=== PATIENT | male | born 1990 | race Caucasian/White ===

== ENCOUNTER 2017-02-01 15:56 | Emergency (ER) | payer OTHER ==
[~2017-02-01] VITALS: Ht 167.6 cm; Wt 74.8 kg
[2017-02-01] MEDS ORDERED: PROSCAR5 MG ORAL (16:04)
[2017-02-01] MEDS ORDERED: Lidocaine 2% 20mg/ml/Epi 0.005mg/ml 20ml vial ONE (16:12)
[2017-02-01] MEDS ORDERED: TdaP Vaccine 0.5ml Syr IM ONE (16:15)
[2017-02-01] MEDS ORDERED: Bacitracin Oint UD TOPIC ONE (16:15)
[2017-02-01] MEDS ORDERED: Lidocaine 1% 10mg/ml/Epi 0.005mg/ml 30ml vial INJ ONE (16:15)
[2017-02-01 16:17] VITALS: BP 99/63
--- NOTE | 2017-02-01 16:31 | Emergency Room Report ---
History of Present Illness General Chief Complaint: Laceration Source: Patient Present Illness HPI 26-year-old male presents emergency department complaining of laceration to the palm of the left hand since this afternoon. Patient states that he was at work and patient pain glass shattered in his hand and to was cut by broken glass. Patient does not believe that there is retained glass in the palm he states bleeding has for the most part subsided as at work they applied blood clotting powder. Patient states he is unsure whether he is up-to-date with tetanus. Patient denies taking blood thinning medications. Denies numbness tingling or loss of sensation or gross motor movements of the extremities, incontinence of bowel or bladder. Denies CP, Palpitations, LOC, AMS, dizziness, Changes in Vision, Sensation, paresthesias, or a sudden severe headache. Allergies: Coded Allergies: No Known Allergies (Unverified , 02/01/17) Patient History Past Medical History: see triage record Past Surgical History: none Pertinent Family History: none Reviewed Nursing Documentation: PMH: Agreed, PSxH: Agreed Nursing Documentation-PMH Past Medical History: No Stated History Review of Systems All Other Systems: negative except mentioned in HPI Physical Exam Vital Signs Date Time Temp Pulse Resp B/P Pulse Ox O2 Delivery O2 Flow Rate FiO2 02/01/17 15:59 97.9 67 16 99/63 99 Sp02 EP Interpretation: reviewed, normal General Appearance: no apparent distress, alert, GCS 15, non-toxic Head: normocephalic, atraumatic Eyes: bilateral eye PERRL, bilateral eye normal inspection ENT: hearing grossly normal, normal pharynx, no angioedema, normal voice Neck: full range of motion, supple/symm/no masses Respiratory: chest non-tender, lungs clear, normal breath sounds, speaking full sentences Cardiovascular #1: regular rate, rhythm, no edema, normal capillary refill Musculoskeletal: back normal, gait/station normal, normal range of motion, non- tender Neurologic: alert, oriented x3, responsive, motor strength/tone normal, sensory intact, speech normal Psychiatric: judgement/insight normal, memory normal, mood/affect normal Skin: normal color, no rash, warm/dry, well hydrated, laceration - left palm laceration approx. 1cm in length on the thenar aspect. no obvious fb. Procedures Laceration/Wound Repair Laceration/Wound Repair : Consent: Verbal Wound Location: upper extremity - left palm Wound's Depth, Shape: superficial Wound Length (cm): 1 Wound Explored: clean Irrigated w/ Saline (ccs): 200 Betadine Prep?: Yes Anesthesia: Lidocaine w/ Epi Volume Anesthetic (ccs): 2 Wound Repaired With: sutures Suture Size/Type: 5:0 Number of Sutures: 4 Layer Closure?: No Sterile Dressing Applied?: Yes Splint Applied?: Yes Type of Splint Applied: volar hand Sling Applied?: No Patient Tolerated: Well Complications: Other - unable to located radiopaque FB. Medical Decision Making PA Attestation Dr. Man is my supervising Physician whom patient management has been discussed with. Diagnostic Impression: Primary Impression: Laceration Additional Impression: Retained foreign body ER Course Pt. presents to the ED c/o laceration to left palm from shattered champagne glass. Ddx considered but are not limited to laceration, tendon injury, cellulitis, amputation, FB. Vital signs: are WNL, pt. is afebrile H&PE are most consistent with: laceration of the left palm approx 1 cm in length ORDERS: -X- Ray Left Hand 3 views: Positive for obvious radiopaque FB, No fracture, dislocation, or soft tissue injury per soft read in the ED by Dr. Man ED INTERVENTIONS: -Tetanus vaccine was administered as pt. vaccination status was unknown. - pt. is anesthetized with 1%lidocaine w. epi. approximately 2cc - The wound was copiously irrigated with normal saline to remove the clotting powder and explored for foreign body for which FB was unable to be located. -due to the intricate structures in the hand, Dr. Man and I determined that further exploration would pose the risk of causing damage to internal structures/nerves, and that retrieval of FB should be performed by hand specialist. --- pt. demonstrated verbal understanding and agreement with proposed treatment plan. - The wound was approximated and closed using 4 interrupted 5.0 Prolene sutures. -Bacitracin and sterile dressing is applied. - volar hand Splint applied to left hand by field technician. Pt. remains neurovascularly intact. Discussed with patient: That we make every effort to approximate the laceration as best as we can so that scarring will be as cosmetically pleasing as possible with our limited cosmetic skill set in the Emergency dept. Regardless of our best efforts there will be scarring after laceration repair. The extent of scarring is unknown at this time. DISCHARGE: At this time pt. is stable for d/c to home. Will provide printed patient care instructions, and any necessary prescriptions. Care plan and follow up instructions have been discussed with the patient prior to discharge. Last Vital Signs Date Time Temp Pulse Resp B/P Pulse Ox O2 Delivery O2 Flow Rate FiO2 02/01/17 16:17 97.9 16 99/63 99 02/01/17 15:59 67 Disposition: HOME, SELF-CARE Condition: Stable Scripts Cephalexin* (KEFLEX*) 500 Mg Capsule 500 MG ORAL EVERY 12 HOURS for 7 Days, #14 CAP 0 Refills Prov: Gaby Montes 02/01/17 Bacitracin/Polymyxin B Sulfate (BACITRACIN-POLYMYXIN OINTMENT) 28.35 Gm Oint...g. 1 APPLIC TP BID, #28.3 GM Prov: Gaby Montes 02/01/17 Departure Forms: Return to Work Return to Work Date: February 02, 2017 Work Restrictions: No Heavy Lifting Other Restrictions: limited use of left hand, keep clean and dry. x 1 week. Return to Full Activity: February 09, 2017 Patient Instructions: Laceration Care, Adult Additional Instructions: Take medications as directed. Follow up with HAND SPECIALIST in 3-5 days Return sooner to ED if new symptoms occur, or current symptoms become worse. -*SUTURES ARE TO BE REMOVED IN 8-10 DAYS, KEEP WELL MOISTURIZED WITH ANTIBIOTIC OINTMENT ONLY, DO NOT SUBMERGE INTO WATER FOR AT LEAST 5 DAYS. - Please note that this Emergency Department Report was dictated using [employer]imb[employer] welder technology software, occasionally this can lead to erroneous entry secondary to interpretation by the dictation equipment. Gaby Montes February 01, 2017 16:31
[2017-02-01] MEDS ORDERED: BACITRACIN-P28.35 GM TP (16:32)
[2017-02-01] MEDS ORDERED: CEPHALEXIN500 MG ORAL (16:32)
[2017-02-01 18:11] VITALS: BP 107/67
--- NOTE | 2017-02-02 09:55 | Diagnostic Imaging Report ---
Indications: Penetrating trauma, pain Technique: 3 views left hand. Findings: Comparison: None Soft tissues of the thenar eminence and first webspace are swollen. 5 mm sliver-like foreign body resides within. No fracture, dislocation, joint space widening , or other acute changes are identified. IMPRESSION: Thenar eminence/first webspace soft tissue swelling with foreign body No fracture.
== END 2017-02-01 18:13 | disposition home or self-care (01) ==
LOC: EMR 16:24
DX: S61.422A Laceration with foreign body of left hand, initial encounter (principal); Z23 Encounter for immunization; W25.XXXA Contact with sharp glass, initial encounter; W45.8XXA Other foreign body or object entering through skin, initial encounter; Y93.9 Activity, unspecified; Y99.0 Civilian activity done for income or pay
CPT/HCPCS: 29280; 90471; 90715; 96372

== ENCOUNTER 2020-02-15 23:51 | Emergency (ER) | payer OTHER ==
[~2020-02-15] VITALS: Ht 167.6 cm; Wt 74.8 kg
[~2020-02-15 23:51] MED LIST: BACITRACIN-P28.35 GM TP; CEPHALEXIN500 MG ORAL; PROSCAR5 MG ORAL
[2020-02-16 00:10] VITALS: BP 125/82
--- NOTE | 2020-02-16 00:24 | Emergency Room Report ---
History of Present Illness General Chief Complaint: Male Urogenital Problems Source: Patient Present Illness HPI Patient presents with hematuria without clots today. Associated right flank pain and suprapubic discomfort. He describes this as an ache and rates it 2/10 at this time. There is no testicular discomfort. He has no rectal pain. He has had intermittent symptoms of discomfort in his abdomen and also right flank in the past. He is not had a diagnosis. He was offered prostate ultrasound in the past however declined this. He states he has had urinary tract infections in the past. Patient denies fevers or chills. There is no nausea, vomiting or diarrhea or change in bowels. Patient denies knowing of any family history of renal stones. No sore throat, chest pain, palpitations, shortness of breath, joint pain, rashes, depression, anxiety, visual changes, dizziness, headache. Allergies: Coded Allergies: No Known Allergies (Unverified , 02/01/17) COVID-19 Screening Contact w/high risk pt: No Recent Travel to affected area: No Experienced COVID-19 symptoms?: No COVID-19 Testing performed [employer]UKE[employer] ROUTE DRIVER: No Patient History Past Medical History: see triage record Social History: Reports: alcohol use; Denies: smoking, drug use Social History Narrative server security administrator Reviewed Nursing Documentation: PMH: Agreed; PSxH: Agreed Nursing Documentation-PMH Past Medical History: No Stated History Review of Systems All Other Systems: negative except mentioned in HPI Physical Exam Vital Signs Date Time Temp Pulse Resp B/P (MAP) Pulse Ox O2 Delivery O2 Flow Rate FiO2 02/15/20 23:58 98.4 68 18 122/81 (95) 99 Room Air Sp02 EP Interpretation: reviewed, normal General Appearance: well appearing, no apparent distress, GCS 15 Head: normocephalic Eyes: bilateral eye normal inspection, bilateral eye PERRL ENT: moist mucus membranes Neck: supple Respiratory: no respiratory distress Cardiovascular #1: regular rate, rhythm Cardiovascular #2: 2+ radial (R) Gastrointestinal: normal inspection, normal bowel sounds, no mass, non- distended, no guarding, no rebound, tenderness - suprapubic Genitourinary: no CVA tenderness Musculoskeletal: back normal, normal range of motion, gait/station normal Neurologic: alert, oriented x3, grossly normal Psychiatric: mood/affect normal Skin: no rash, warm/dry Medical Decision Making Diagnostic Impression: Primary Impression: Hematuria Qualified Codes: R31.9 - Hematuria, unspecified Additional Impression: Flank pain ER Course Patient presents with hematuria suprapubic pain and right flank pain. Differential includes pyelonephritis, UTI, renal stone, renal mass amongst others. Evaluation with labs and CT of the abdomen. Patient declines pain medication at this time. Labs unremarkable. CT scan as below. Discussed results with patient. Discussed the need to follow-up with urology. No apparent emergency at this time. Patient stable for outpatient observation and treatment. Laboratory Tests Test 02/16/20 00:05 02/16/20 00:17 Urine Color Pale yellow Urine Appearance Clear Urine pH 6 (4.5-8.0) Urine Specific Marshall 1.005 (1.005-1.035) Urine Protein Negative (NEGATIVE) Urine Glucose (UA) Negative (NEGATIVE) Urine Ketones Negative (NEGATIVE) Urine Blood 3+ (NEGATIVE) H Urine Nitrite Negative (NEGATIVE) Urine Bilirubin Negative (NEGATIVE) Urine Urobilinogen Normal MG/DL (0.0-1.0) Urine Leukocyte Esterase Negative (NEGATIVE) Urine RBC 15-20 /HPF (0 - 0) H Urine WBC 0 /HPF (0 - 0) Urine Squamous Epithelial Cells None /LPF (NONE/OCC) Urine Bacteria None /HPF (NONE) White Blood Count 8.4 K/UL (4.8-10.8) Red Blood Count 5.20 M/UL (4.70-6.10) Hemoglobin 16.8 G/DL (14.2-18.0) Hematocrit 44.1 % (42.0-52.0) Mean Corpuscular Volume 85 FL (80-99) Mean Corpuscular Hemoglobin 32.4 PG (27.0-31.0) H Mean Corpuscular Hemoglobin Concent 38.2 G/DL (32.0-36.0) H Red Cell Distribution Width 10.5 % (11.6-14.8) L Platelet Count 307 K/UL (150-450) Mean Platelet Volume 5.2 FL (6.5-10.1) L Neutrophils (%) (Auto) 61.1 % (45.0-75.0) Lymphocytes (%) (Auto) 26.5 % (20.0-45.0) Monocytes (%) (Auto) 10.5 % (1.0-10.0) H Eosinophils (%) (Auto) 1.1 % (0.0-3.0) Basophils (%) (Auto) 0.8 % (0.0-2.0) Prothrombin Time 11.7 SEC (9.30-11.50) H Prothrombin Time INR 1.1 (0.9-1.1) Activated Partial Thromboplast Time 26 SEC (23-33) Sodium Level 140 MMOL/L (136-145) Potassium Level 3.7 MMOL/L (3.5-5.1) Chloride Level 102 MMOL/L (98-107) Carbon Dioxide Level 27 MMOL/L (21-32) Anion Gap 11 mmol/L (5-15) Blood Urea Nitrogen 8 mg/dL (7-18) Creatinine 0.8 MG/DL (0.55-1.30) Estimated Glomerular Filtration Rate > 60 mL/min (>60) Glucose Level 91 MG/DL (74-106) Calcium Level 9.2 MG/DL (8.5-10.1) Total Bilirubin 0.6 MG/DL (0.2-1.0) Aspartate Amino Transferase (AST) 22 U/L (15-37) Alanine Aminotransferase (ALT) 28 U/L (12-78) Alkaline Phosphatase 94 U/L (46-116) Total Creatine Kinase 230 U/L (26-308) Total Protein 7.8 G/DL (6.4-8.2) Albumin 4.3 G/DL (3.4-5.0) Globulin 3.5 g/dL Albumin/Globulin Ratio 1.2 (1.0-2.7) Lipase 121 U/L (73-393) CT/MRI/US Diagnostic Results CT/MRI/US Diagnostic Results : Imaging Test Ordered: abd/pelvis Impression FINDINGS: Lung bases: No mass. No consolidation. ABDOMEN: Liver: Unremarkable. Gallbladder and bile ducts: Unremarkable. Pancreas: No ductal dilation. Spleen: Unremarkable. Adrenals: Unremarkable. Kidneys and ureters: No obstructing stones. No hydronephrosis. Stomach and bowel: No bowel obstruction. No bowel wall thickening. PELVIS: Appendix: No evidence of appendicitis. Bladder: No stones. Reproductive: Unremarkable. ABDOMEN and PELVIS: Intraperitoneal space: Unremarkable. Bones/joints: No acute fractures. Soft tissues: Unremarkable. Vasculature: No abdominal aortic aneurysm. Lymph nodes: No enlarged lymph nodes. IMPRESSION: No acute findings. No hydronephrosis or nephrolithiasis. Last Vital Signs Date Time Temp Pulse Resp B/P (MAP) Pulse Ox O2 Delivery O2 Flow Rate FiO2 02/16/20 00:10 98.4 75 18 125/82 99 Room Air Status: unchanged Disposition: HOME, SELF-CARE Condition: Stable Scripts Acetaminophen (Tylenol) 325 Mg Tablet 650 MG ORAL Q6H PRN for Prn Pain/Headache/Temp > 101, #20 TAB 0 Refills Prov: Ron Argueta MD 02/16/20 Referrals: NOT CHOSEN IPA/,REFERRING (PCP) Ron Argueta MD February 16, 2020 00:24
[2020-02-16 00:31] LABS: APPEARANCE,URINE CLEAR; BILIRUBIN, URINE NEGATIVE (NEGATIVE); COLOR,URINE PALE YELLOW; GLUCOSE, URINE (UA) NEGATIVE (NEGATIVE); KETONES,URINE NEGATIVE (NEGATIVE); LEUKOCYTE ESTERASE ,URINE NEGATIVE (NEGATIVE); NITRITE,URINE NEGATIVE (NEGATIVE); PH,URINE 6 (4.5-8.0); PROTEIN,URINE NEGATIVE (NEGATIVE); UROBILINOGEN,URINE NORMAL MG/DL (0.0-1.0)
[2020-02-16 00:32] LABS: BASOPHILS % (AUTO) 0.8 % (0.0-2.0); EOSINOPHILS % (AUTO) 1.1 % (0.0-3.0); HEMATOCRIT 44.1 % (42.0-52.0); HEMOGLOBIN 16.8 G/DL (14.2-18.0); LYMPHOCYTES % (AUTO) 26.5 % (20.0-45.0); MEAN CORPUSCULAR VOLUME 85 FL (80-99); MONOCYTES % (AUTO) 10.5 % (1.0-10.0); NEUTROPHILS % (AUTO) 61.1 % (45.0-75.0); PLATELET COUNT 307 K/UL (150-450); RED CELL DISTRIBUTION WIDTH 10.5 % (11.6-14.8); WHITE BLOOD COUNT 8.4 K/UL (4.8-10.8)
[2020-02-16 00:42] LABS: ANION GAP 11 mmol/L (5-15); BLOOD UREA NITROGEN 8 mg/dL (7-18); CALCIUM 9.2 MG/DL (8.5-10.1); CARBON DIOXIDE 27 MMOL/L (21-32); CHLORIDE 102 MMOL/L (98-107); CREATININE 0.8 MG/DL (0.55-1.30); POTASSIUM 3.7 MMOL/L (3.5-5.1); SODIUM 140 MMOL/L (136-145)
[2020-02-16 00:45] LABS: INR 1.1 (0.9-1.1)
[2020-02-16 00:47] LABS: ALANINE AMINOTRANSFERASE 28 U/L (12-78); ALBUMIN 4.3 G/DL (3.4-5.0); ALBUMIN/GLOBULIN RATIO 1.2 (1.0-2.7); ALKALINE PHOSPHATASE 94 U/L (46-116); ASPARTATE AMINO TRANSFERASE 22 U/L (15-37); BILIRUBIN,TOTAL 0.6 MG/DL (0.2-1.0); CREATINE KINASE 230 U/L (26-308)
--- NOTE | 2020-02-16 01:32 | Diagnostic Imaging Report ---
EXAM: CT Abdomen and Pelvis Without Intravenous Contrast CLINICAL HISTORY: FLANK TECHNIQUE: Axial computed tomography images of the abdomen and pelvis without intravenous contrast. CTDI is 5 mGy and DLP is 272 mGy-cm. One or more of the following dose reduction techniques were used: automated exposure control, adjustment of the mA and/or kV according to patient size, use of iterative reconstruction technique. COMPARISON: No relevant prior studies available. FINDINGS: Lung bases: No mass. No consolidation. ABDOMEN: Liver: Unremarkable. Gallbladder and bile ducts: Unremarkable. Pancreas: No ductal dilation. Spleen: Unremarkable. Adrenals: Unremarkable. Kidneys and ureters: No obstructing stones. No hydronephrosis. Stomach and bowel: No bowel obstruction. No bowel wall thickening. PELVIS: Appendix: No evidence of appendicitis. Bladder: No stones. Reproductive: Unremarkable. ABDOMEN and PELVIS: Intraperitoneal space: Unremarkable. Bones/joints: No acute fractures. Soft tissues: Unremarkable. Vasculature: No abdominal aortic aneurysm. Lymph nodes: No enlarged lymph nodes. IMPRESSION: No acute findings. No hydronephrosis or nephrolithiasis.
[2020-02-16] MEDS ORDERED: TYLENOL325 MG ORAL (01:53)
[2020-02-16 01:58] VITALS: BP 121/78
--- NOTE | 2020-02-17 17:09 | Emergency Room Report ---
Physical Exam Vital Signs Date Time Temp Pulse Resp B/P (MAP) Pulse Ox O2 Delivery O2 Flow Rate FiO2 02/15/20 23:58 98.4 68 18 122/81 (95) 99 Room Air Medical Decision Making Diagnostic Impression: Primary Impression: Hematuria Qualified Codes: R31.9 - Hematuria, unspecified Additional Impression: Flank pain ER Course Patient called today as he was concerned about EGFR results and CT results as he cooled and was wondering if his EGFR is within normal limits. Advised patient that his labs and CT scan within normal limit however for further evaluation of hematuria needs to see primary doctor be sent to urologist. Patient kept asking whether we ruled out cancer for sure and I advised him that he needs to follow-up for more definitive measurement at this time patient needs to follow-up with outpatient and no more medical advice can be given over the phone. Last Vital Signs Date Time Temp Pulse Resp B/P (MAP) Pulse Ox O2 Delivery O2 Flow Rate FiO2 02/16/20 01:58 98.2 70 17 121/78 98 Room Air Disposition: HOME, SELF-CARE Condition: Stable Scripts Acetaminophen (Tylenol) 325 Mg Tablet 650 MG ORAL Q6H PRN for Prn Pain/Headache/Temp > 101, #20 TAB 0 Refills Prov: Ron Argueta MD 02/16/20 Referrals: NOT CHOSEN IPA/,REFERRING (PCP) Pelon Ritter MD Patient Instructions: Hematuria, Adult Additional Instructions: Tylenol for discomfort. Return if fever, increased pain or inability to urinate. Avoid aspirin, Advil, Aleve, Alkaselzer, Peptobismol. Find a primary care physician. Janet Lan February 17, 2020 17:09
== END 2020-02-16 01:58 | disposition home or self-care (01) ==
LOC: EMR 02-16 00:12
DX: R31.9 Hematuria, unspecified (principal); R10.9 Unspecified abdominal pain; Z72.89 Other problems related to lifestyle
CPT/HCPCS: 36415; 74176; 80053; 81003; 82550; 83690; 85025; 85610; 85730; 99284